=== PATIENT | female | born 1955 | race Caucasian/White ===

== ENCOUNTER → 2019-12-04 | Outpatient (CLI) | payer OTHER | END | disposition home or self-care (01) | LOC: RAH 11:48 | PROVIDERS: ATTEND Internal Medicine | DX: M79.605 Pain in left leg (principal); I70.0 Atherosclerosis of aorta; M47.814 Spondylosis without myelopathy or radiculopathy, thoracic region; R07.1 Chest pain on breathing; R22.2 Localized swelling, mass and lump, trunk | CPT/HCPCS: 71046; 93926; 93971 ==